=== PATIENT | female | born 1970 | race Caucasian/White ===

== ENCOUNTER 2016-09-23 01:34 | Emergency (ER) | payer MEDICAID ==
[~2016-09-23] VITALS: Ht 177.8 cm; Wt 100.0 kg
[2016-09-23] MEDS ORDERED: BUPR300T49 PO (01:49)
[2016-09-23] MEDS ORDERED: OXYC-302 PO (01:49)
[2016-09-23] MEDS ORDERED: METH750T87 PO (01:49)
[2016-09-23] MEDS ORDERED: SODIUM CHLORIDE 0.9% 1,000ML IVBOLUS ONE (02:00)
[2016-09-23 02:09] LABS: ASPARTATE AMINO TRANSFERASE 152 U/L (15-37); BLOOD UREA NITROGEN 5 mg/dL (7-18)
[2016-09-23 02:16] LABS: IS PT STATUS REG ER OR PRE ER? YES
[2016-09-23 03:08] VITALS: BP 124/71
== END 2016-09-23 03:10 | disposition home or self-care (01) ==
LOC: ED 03:08
DX: F41.1 Generalized anxiety disorder (principal); F10.120 Alcohol abuse with intoxication, uncomplicated; R05 Cough; R06.02 Shortness of breath; J44.9 Chronic obstructive pulmonary disease, unspecified; E66.9 Obesity, unspecified; M54.9 Dorsalgia, unspecified; G89.29 Other chronic pain; M79.7 Fibromyalgia; F32.9 Major depressive disorder, single episode, unspecified
CPT/HCPCS: 36415; 71010; 80053; 80307; 84484; 85025; 99285